=== PATIENT | female | born 1945 | race Caucasian/White ===

== ENCOUNTER 2020-07-19 05:39 | Day surgery (SDC) | payer OTHER, BC ==
[2020-07-19 08:27] VITALS: BMI 29.4
[2020-07-19 09:55] VITALS: TEMP 97.1
[2020-07-19 10:16] VITALS: BP 128/47; PULSE 60
== END 2020-07-19 10:49 | disposition home or self-care (01) ==
LOC: JASU-SURG 05:39
PROVIDERS: ATTEND Internal Medicine Gastroenterology
PROC: 0DBN8ZX Excision of Sigmoid Colon, Via Natural or Artificial Opening Endoscopic, Diagnostic (ICD-10-PCS; principal; 2020-07-19 09:00)
DX: Z12.11 Encounter for screening for malignant neoplasm of colon (principal); K57.30 Diverticulosis of large intestine without perforation or abscess without bleeding; K63.5 Polyp of colon; K64.8 Other hemorrhoids; K64.4 Residual hemorrhoidal skin tags; Z80.0 Family history of malignant neoplasm of digestive organs; K59.00 Constipation, unspecified

== ENCOUNTER 2022-08-14 09:03 | Day surgery (SDC) | payer OTHER, BC ==
[2022-08-08 10:20] VITALS: BMI 28.3
[2022-08-14] MEDS ORDERED: CARBACHOL 0.01% INTRA-OCULAR 1.5 ML VIAL ONE (09:44)
[2022-08-14] MEDS ORDERED: BSS (NA/CA/MG/K) BALANCED SALT SOLUTION OPHTH SOLN 15 ML BOTTLE ONE (09:44)
[2022-08-14] MEDS ORDERED: NEO/POLYMYX B SULF/DEXAMETH OPHTHALMIC 5ML BOTTLE ONE (09:44)
[2022-08-14] MEDS: CIPROFLOXACIN 0.3% EYE DROPS 5 ML BOTTLE ONE ×3 (10:15→10:25)
[2022-08-14] MEDS: TROPICAMIDE 1% OPHTH SOLN 15 ML BOTTLE ONE ×3 (10:15→10:25)
[2022-08-14] MEDS: CYCLOPENTOLATE 2% OPHTH SOLN 2 ML BOTTLE ONE ×3 (10:15→10:25)
[2022-08-14] MEDS: PHENYLEPHRINE 2.5% OPTHALMIC DROP 2ML BOTTLE ONE ×3 (10:15→10:25)
[2022-08-14 10:24] VITALS: TEMP 97.6
[2022-08-14] MEDS ORDERED: MIDAZOLAM HCL 2 MG/2 ML SINGLE DOSE VIAL ONE (11:01)
[2022-08-14 12:42] VITALS: RESP 18
[2022-08-14 12:44] VITALS: BP 140/59; PULSE 60
== END 2022-08-14 12:45 | disposition home or self-care (01) ==
LOC: FASU 09:03
PROVIDERS: ATTEND Ophthalmology
PROC: 08RJ3JZ Replacement of Right Lens with Synthetic Substitute, Percutaneous Approach (ICD-10-PCS; principal; 2022-08-14 11:17)
DX: H26.8 Other specified cataract (principal)
CPT/HCPCS: 66984; V2632